=== PATIENT | male | born 1975 ===

== ENCOUNTER 2019-06-12 11:53 | Emergency (ER) | payer SELFPAY ==
[2019-06-12 13:19] VITALS: BP 126/69
--- NOTE | 2019-06-12 13:19 | Emergency Department Report ---
Chief Complaint: Skin/Abscess/Foreign Body Stated Complaint: LUMP IN ABD Time Seen by Provider: 06/12/19 13:15 - HPI History of Present Illness: 44 y/o male p/w bump from xyphoid, occasionally tender, non tender now He points to the inferior aspect of his xiphoid process. It appears to be consistent with normal human anatomy. There is no redness, pus or streaking. He is not having any significant pain at this time. there is no facial droop. Tongue is midline. Extraocular movements are intact bilaterally. Walking with a steady gait. Speaking in full sentences. Normal appropriate thought content. 5 out of 5 strength in 4 extremities. Sensation is intact to light touch in 4 extremities. there is no facial droop. Tongue is midline. Extraocular movements are intact bilaterally. Walking with a steady gait. Speaking in full sentences. Normal appropriate thought content. 5 out of 5 strength in 4 extremities. Sensation is intact to light touch in 4 extremities. S1, S2, regular rate and rhythm. No murmurs, rubs or gallops. Breath sounds clear to auscultation bilaterally. No abdominal tenderness, rebound or guarding. No spinal tenderness. No spinal step-offs. No long bony tenderness noted. 2+ pulses noted in the bilateral upper extremities. does heavy lifting at work exam not c/w abscess fracture or dislocation exam consistent with normal human xyphoid bony process expectant management no other symptoms not consistent with emergent medical condition Vital Signs 06/12/19 13:13 Temperature 97.8 F Pulse Rate 63 Respiratory 18 Rate Blood Pressure 126/69 O2 Sat by Pulse 97 Oximetry MSE screening note: Focused history and physical exam performed. Due to findings the following was ordered: ED Disposition for MSE Clinical Impression: General medical exam Disposition: Z-[id number] MED SCREENING EXAM-LEFT Is pt being admited?: No Does the pt Need Aspirin: No Condition: Stable Additional Instructions: follow up with a pmd within 2-4 weeks avoid heavy lifting take motrin and tylenol over the counter as directed return rigth away if worse or with new or different symptoms not initially present on the er evaluation Referrals: [facility] [Provider Group] - 3-5 Days JESSE BLOUNT MD [Staff Physician] - 3-5 Days PRIMARY MD YOSHI [Primary Care Provider] - 3-5 Days Forms: Work/School Release Form(ED)
== END 2019-06-12 14:11 | disposition left against medical advice (07) ==
LOC: ED 11:53
DX: R19.01 Right upper quadrant abdominal swelling, mass and lump (principal)
CPT/HCPCS: 99282